=== PATIENT | female | born 1935 | race Two or more races ===

== ENCOUNTER 2025-07-29 12:38 | Inpatient (IN) | payer OTHER ==
[~2025-07-29] VITALS: Ht 160 cm; Wt 52.5 kg
--- NOTE | 2025-07-29 13:03 | ECG ---
[facility] Test Date: 2025-07-29 Test Time: 12:42:02 Pat Name: MOIZ HYMAN Department: [facility] ED Patient ID: [id number] Room: 0287T Gender: F Upholstery Cutter: alton : 1935 Requested By: ALLYN RANGEL Order Number: [id number] Reading MD: Yonny Guillaume Measurements Intervals [place] Rate: 93 P: 45 [place]: 142 QRS: -3 QRSD: 80 T: 21 QT: 375 QTc: 467 Interpretive Statements Sinus rhythm Multiple premature complexes, vent & supraven Probable left atrial enlargement Low voltage, precordial leads Borderline T abnormalities, anterior leads Electronically Signed On 07-31-2025 15:26:28 PST by Yonny Guillaume Please click the below link to view image of tracing.
--- NOTE | 2025-07-29 13:25 | ED.PDOC ---
HPI Comments This is a 89 year old female MARGOTH presenting to the ED with chief complaint of tachycardia. Patient reports that she has been experiencing episodes of tachycardia since last night, but has had multiple episodes over the past year. Patient relays that her palpitations worsened last night. Patient states that she was recently diagnosed with POTS. Patient notes associated symptoms of dizziness and SOB at this time, feeling like she is going to faint. Patient denies any chest pain, headache, N/V, abdominal pain, or syncope. Chief Complaint: High Blood Pressure Time Seen by MD: 13:11 Reviewed Notes: Nurses Notes, Refrigeration Specialist Notes, Medications, Allergies Allergies: Coded Allergies: UNOBTAINABLE (Unverified , 07/29/25) DOES NOT REMEMBER Information Source: Patient, Emergency Med Personnel Mode of Arrival: EMS Severity: Moderate Timing: Hours Duration: Since onset Prehospital treatment: None Onset: At Rest Past Medical History PAST MEDICAL HISTORY: Thyroid Past Medical History (Other): POTS Surgical History: Denies all surgeries HANDER IN History: Denies all HANDER IN Hx Family History Family History: Reviewed,noncontributory to illness Social History Smoker: Non-Smoker Alcohol: Denies ETOH Use Drugs: Denies Drug Use Lives In: Home Constitutional: denies: chills, diaphoresis, fatigue, fever, malaise, sweats, weakness, others EENTM: denies: blurred vision, double vision, ear bleeding, ear discharge, ear drainage, ear pain, ear ringing, eye pain, eye redness, hearing loss, mouth pain, mouth swelling, nasal discharge, nose bleeding, nose congestion, nose pain, photophobia, tearing, throat pain, throat swelling, voice changes, others Respiratory: reports: shortness of breath; denies: cough, hemoptysis, orthopnea, SOB at rest, SOB with excertion, stridor, wheezing, others Cardiovascular: reports: palpitations; denies: chest pain, dizzy spells, diaphoresis, Dyspnea on exertion, edema, irregular heart beat, left arm pain, lightheadedness, PND, syncope, others Gastrointestinal: denies: abdomen distended, abdominal pain, blood streaked bowels, constipated, diarrhea, dysphagia, difficulty swallowing, hematemesis, melena, nausea, poor appetite, poor fluid intake, rectal bleeding, rectal pain, vomiting, others Genitourinary: denies: abnormal vagina bleeding, burning, dyspareunia, dysuria, flank pain, frequency, hematuria, incontinence, pain, , vagina dischar ge, urgency, others Neurological: reports: dizziness; denies: fainting, headache, left sided numbness, left sided weakness, numbness, paresthesia, pre-existing deficit, right sided numbness, right sided weakness, seizure, speech problems, tingling, tremors, weakness, others Musculoskeletal: denies: back pain, gout, joint pain, joint swelling, muscle pain, muscle stiffness, neck pain, others Integumetry: denies: bruises, change in color, change in hair/nails, dryness, laceration, lesions, lumps, rash, wounds, others Allergic/Immunocompromised: denies: Difficulty Healing, Frequent Infections, Hives, Itching, others Hematologic/Lymphatic: denies: anemia, blood clots, easy bleeding, easy bruising, swollen glands, others Endocrine: denies: excessive hunger, excessive sweating, excessive thirst, excessive urination, flushing, intolerance to cold, intolerance to heat, unexplained weight gain, unexplained weight loss, others Psychiatric: denies: anxiety, bipolar disorder, depression, hopeless, panic disorder, schizophrenia, sleepless, suicidal, others All Other Systems: Reviewed and Negative Physical Exam General Appearance: No Apparent Distress, Normal HEENT: Normal ENT Inspection, Pharynx Normal, TMs Normal Neck: Full Range of Motion, Non-Tender, Normal, Normal Inspection Respiratory: Chest Non-Tender, Lungs Clear, No Accessory Muscle Use, No Respiratory Distress, Normal Breath Sounds Cardiovascular: No Edema, No JVD, No Murmur, No Gallop, Normal Peripheral Pulses, Tachycardia Breast Exam: Deferred Gastrointestinal: No Organomegaly, Non Tender, No Pulsatile Mass, Normal Bowel Sounds, Soft Genitalia: Deferred Pelvic: Deferred Rectal: Deferred Extremities: No calf tenderness, Normal capillary refill, Normal inspection, Normal range of motion, Non-tender, No pedal edema Musculoskeletal : Apperance: Normal Neurologic: Alert, peanut shaker II-XII nml as Tested, No Motor Deficits, Normal Affect, Normal Mood, No Sensory Deficits Cerebellar Function: Normal Reflexes: Normal Skin: Dry, Normal Color, Warm Lymphatic: No Adenopathy Was a procedure done? Was a procedure done?: No X-Ray, Labs, Meds, VS Vital Signs Date Time Temp Pulse Resp B/P (MAP) Pulse Ox O2 Delivery O2 Flow Rate FiO2 07/29/25 13:50 98.4 92 18 167/98 (121) 97 98.4 07/29/25 12:44 98.1 71 18 190/120 98 98.1 07/29/25 12:42 93 Lab Test 07/29/25 13:44 07/29/25 13:10 Range/Units POC Glucose 81 70-106 mg/dl White Blood Count 6.0 4.4-10.8 10^3/uL Red Blood Count 4.38 4.0-5.20 10^6/uL Hemoglobin 13.0 12.2-16.2 g/dL Hematocrit 38.2 36.0-46.0 % Mean Corpuscular Volume 87.4 80.0-100.0 fL Mean Corpuscular Hemoglobin 29.7 28.0-32.0 pg Mean Corpuscular Hemoglobin Concent 34.0 32.0-36.0 g/dL Red Cell Distribution Width 15.3 H 11.8-14.3 % Platelet Count 209 140-450 10^3/uL Mean Platelet Volume 7.2 6.9-10.8 fL Neutrophils (%) (Auto) 73.8 37.0-80.0 % Lymphocytes (%) (Auto) 16.0 10.0-50.0 % Monocytes (%) (Auto) 5.5 0.0-12.0 % Eosinophils (%) (Auto) 4.2 0.0-7.0 % Basophils (%) (Auto) 0.5 0.0-2.0 % Neutrophils # (Auto) 4.5 1.6-8.6 10 ^3/uL Lymphocytes # (Auto) 1.0 0.4-5.4 10 ^3/uL Monocytes # (Auto) 0.3 0-1.3 10 ^3/uL Eosinophils # (Auto) 0.3 0-0.8 10 ^3/uL Basophils # (Auto) 0 0-0.2 10 ^3/uL Nucleated Red Blood Cells 0.0 % Lactic Acid Level 1.1 0.4-2.0 mmol/L Troponin I High Sensitivity 27 </=34 ng/L Lipase 28 12-53 U/L Beta HCG, Quantitative 13.3 H 1.5-4.2 mIU/mL X-Ray, Labs, Meds, VS Comment [facility] [id number] [place] [id number] Ph: [phone] DIAGNOSTIC IMAGING Diagnostic Imaging Report : [id number] Signed PATIENT: CLARA HYMANT: [id number] UNIT: [id number] : 1935 LOC: ER ROOM / BED: / AGE / SEX: 89 / F ADM STATUS: REG ER SERVICE 1251 ORDERING PHYSICIAN: ALLYN RANGEL MD PROCEDURE(s): CXRP - CHEST PORTABLE REASON: palpitations ORDER NUMBER(s): [id number], ACCESSION NUMBER(s): [id number] EXAM: XY CHEST PORTABLE CLINICAL HISTORY: palpitations TECHNIQUE: Single AP view of the chest WID: COMPARISON: None FINDINGS: Lines and tubes: None Chest: The heart size and pulmonary vasculature is within normal limits. Calcified plaque projects over the aortic arch. No pleural effusion, pneumothorax, or consolidation. Mild right hilar prominence. Linear scarring or atelectasis in the bilateral lungs. The osseous structures are grossly intact. IMPRESSION: 1. Mild right hilar prominence. DDX includes vascular tortuosity, lymphadenopathy, or opacity. Recommend obtaining CT chest for further evaluation. ATED BY: MAGALI MOREAU MD DICTATED DATE/TIME: 07/29/25 1341 SIGNED BY: MAGALI MOREAU MD SIGNED DATE/TIME: 07/29/25 1341 CC: Time of 1ST Reevaluation: 14:10 Reevaluation 1ST: Unchanged Patient Education/Counseling: Diagnosis, Treatment Family Education/Counseling: No Family Present SEPSIS Sepsis Screen Date sepsis recognized/suspect: Jul 29, 2025 Time Sepsis recognized/suspect: 1248 Recent Procedure: No On Antibiotic Therapy: No Respiratory Rate >20: No Heart Rate >90: No Temp<36 C (96.8 F) or >38.3 C: No SBP <90 or MAP <65 mmHG: No New Acute Mental Status Change: No Is the patient on CPAP, BIPAP,: No Physician Orders Urinalysis (07/29/25 12:51) Blood Culture (07/29/25 12:51) Chest Portable (07/29/25 12:51) Troponin-I Hs (07/29/25 13:51) Troponin-I Hs (07/29/25 15:51) Electrocardigram (07/29/25 13:51) Electrocardigram (07/29/25 15:51) Vital Signs Date Time Temp Pulse Resp B/P (MAP) Pulse Ox O2 Delivery O2 Flow Rate FiO2 07/29/25 13:50 98.4 92 18 167/98 (121) 97 98.4 07/29/25 12:44 98.1 71 18 190/120 98 98.1 07/29/25 12:42 93 Laboratory Tests Test 07/29/25 13:10 Lactic Acid Level 1.1 mmol/L (0.4-2.0) White Blood Count 6.0 10^3/uL (4.4-10.8) Critical Care Note Critical Care Time?: No Stability Stability form required: No Heart Score Heart Score: Heart Score Response (Comments) Value History Highly Suspicious 2 EKG Normal 0 Age >65 2 Risk Factors >3 or Hx ASHD 2 Total 6 I personally scribed for ALLYN RANGEL MD ([email or web address]) on 07/29/25 at 13:25. Electronically submitted by Theo Ahumada ([email or web address]). I personally scribed for ALLYN RANGEL MD ([email or web address]) on 07/29/25 at 14:03. Electronically submitted by Theo Ahumada ([email or web address]). ALLYN RANGEL MD Jul 29, 2025 13:25
[2025-07-29 13:26] LABS: Hematocrit 38.2 % (36.0-46.0); Hemoglobin 13.0 g/dL (12.2-16.2); Mean Corpuscular Hemoglobin 29.7 pg (28.0-32.0); Mean Corpuscular Volume 87.4 fL (80.0-100.0); Nucleated Red Blood Cells % 0.0 %
--- NOTE | 2025-07-29 13:44 | DVH ---
EXAM: XY CHEST PORTABLE CLINICAL HISTORY: palpitations TECHNIQUE: Single AP view of the chest WID: COMPARISON: None FINDINGS: Lines and tubes: None Chest: The heart size and pulmonary vasculature is within normal limits. Calcified plaque projects over the aortic arch. No pleural effusion, pneumothorax, or consolidation. Mild right hilar prominence. Linear scarring or atelectasis in the bilateral lungs. The osseous structures are grossly intact. IMPRESSION: 1. Mild right hilar prominence. DDX includes vascular tortuosity, lymphadenopathy, or opacity. Recommend obtaining CT chest for further evaluation.
[2025-07-29 14:47] LABS: Urine Protein, UAD TRACE (Negative)
[2025-07-29] MEDS ORDERED: CEFEPIME 2GM/50ML NS 50 ML IV ONE (16:30)
[2025-07-29 16:36] LABS: Chloride 106 mmol/L (98-107); Sodium 143 mmol/L (136-145)
[2025-07-29 16:37] LABS: Anion Gap 12 (5-15); Calcium 9.2 mg/dL (8.7-10.4); Carbon Dioxide 25 mmol/L (20-31)
[2025-07-29 16:42] LABS: BUN/Creatinine Ratio 10.7 (10.0-20.0); Blood Urea Nitrogen 9 mg/dL (9-23); Glucose 77 mg/dL (74-106)
[2025-07-29 16:44] LABS: Potassium 3.5 mmol/L (3.5-5.1)
[2025-07-29] MEDS: SODIUM CHLORIDE 0.9% 2,000 ML IV ONE (16:45)
[2025-07-29] MEDS: CEFEPIME 1GM/50ML 50 ML IV ONE (17:08)
[2025-07-29 19:57] VITALS: PULSE 88; RESP 18; O2SAT 96
[2025-07-29] MEDS: CARVEDILOL 12.5 MG TAB PO ONE (21:09)
[2025-07-29] MEDS: METOPROLOL SUCCINATE XL 50 MG TAB PO ONE (22:30)
[2025-07-29] MEDS: SODIUM CHLORIDE 0.9% 250 ML IV ONE (22:30)
[2025-07-29] MEDS ORDERED: POTASSIUM CHL 20MEQ/100ML 100 ML IV SCH (22:30)
[2025-07-29] MEDS ORDERED: ONDANSETRON HCL 4 MG/2 ML VIAL IV PRN (22:30)
[2025-07-29] MEDS ORDERED: POLYETHYLENE GLYCOL 17 GM PWDR PO PRN (22:30)
[2025-07-29] MEDS: MAGNESIUM SULFATE 1GM/100ML 100 ML IV ONE (22:30)
[2025-07-30] VITALS (10 sets, daily range): BP systolic 113–179; BP diastolic 76–98; PULSE 63–83; RESP 16–20; TEMP 96.9–98; O2SAT 95–98
[2025-07-30] MEDS: MAGNESIUM SULFATE 1GM/100ML 100 ML IV ONE (01:10)
[2025-07-30] MEDS: POTASSIUM CHL 20MEQ/100ML 100 ML IV SCH (01:10)
[2025-07-30] MEDS ORDERED: ASPI1TAB20 PO (02:45)
[2025-07-30] MEDS ORDERED: LEVO88TA4 PO (02:47)
[2025-07-30] MEDS ORDERED: LEVOTHYROXINE SODIUM 88 MCG TAB PO SCH (06:00)
--- NOTE | 2025-07-30 06:11 | DVHHPRES ---
History of Present Illness Resident Creating Document: JHKRISTENZaneNATALEEKYLEIGH RESIDENT History of Present Illness Patient is a 89-year-old female presented to the hospital with a chief complaint of palpitations for the last 1 day. Patient reports since the last 1 year she has been having on and off palpitations, her primary cna hospice is Dr. Holden and she has had workup but does not really know her diagnosis. Patient denied any history of NC, coronary artery disease, no history of hypertension or diabetes. Since the night prior to admission patient has been having palpitations more often and she was not able to sleep, had episodes of dizziness and shortness of breath coinciding with the palpitations. She she denied any chest pain. On arrival to the ER patient was seen to have elevated blood pressure with a SBP in 190 and had intermittent episodes of tachycardia which on tele monitor rhythm strips was seen to be SVT. Twelve lead ECG showed sinus rhythm with PACs and PVCs. Past medical history: Hypothyroidism Past surgical history: Hysterectomy Social history: Patient lives with her daughter and denies smoking, alcohol, drug use Home medications: levothyroxine 88 mcg Review of Systems Review of Systems Patient seen and examined with the bedside No acute distress No chest pain, shortness of breath When the patient has episodes of tachycardia she feels dizzy, no other acute complaints Allergies: Coded Allergies: Sulfamethoxazole w/Trimethoprim (Verified Allergy, Unknown, 07/29/25) Medications Current Medications Medications Dose Ordered Sig/Valeria Route Start Time Stop Time Status Last Admin Dose Admin Losartan Potassium 50 mg DAILY PO 07/30/25 10:00 Ceftriaxone Sodium 50 ml @ 100 mls/hr DAILY@09 IV 07/30/25 09:00 Polyethylene Glycol 17 gm DAILYPRN PRN PO 07/29/25 22:30 Ondansetron HCl 4 mg Q6HPRN PRN IV 07/29/25 22:30 Levothyroxine Sodium 88 mcg QAM@0600 PO 07/30/25 06:00 Future Hold Metoprolol Succinate 50 mg DAILY PO 07/30/25 10:00 Exam Vital Signs Vital Signs Date Time Temp Pulse Resp B/P (MAP) Pulse Ox O2 Delivery O2 Flow Rate FiO2 07/30/25 05:00 64 16 160/91 (114) 96 07/30/25 01:58 97.6 97.6 07/30/25 01:58 Room Air* 0 21 Exam Skin - Patients skin is warm and dry. HEENT - normocephalic, atraumatic, moist mucous membranes, no scleral icterus, no conjunctival pallor. Neck - full ROM, no LAD, no JVD Pulmonary - B/L clear breath sounds with minimal basilar crackles likely atelectasis cardiovascular - irregularly irregular regular S1,S2 heard, holosystolic murmur in the RUSB, LLSB. peripheral pulses normal radial 2+, pedal 2+. No edema in the lower extremities GI - soft, nontender abdomen. no hepatospleenomegaly. Bowel sounds normoactive Neurological - Patient is A/O X 4 . Bilateral upper extremity strength 5/5, bilateral lower extremity strength 5/5, no facial droop, normal speech, no tremor, no sensory deficiets. Labs/Xrays Labs Test 07/29/25 16:11 07/29/25 14:23 07/29/25 13:44 07/29/25 13:10 Range/Units Sodium Level 143 136-145 mmol/L Potassium Level 3.5 3.5-5.1 mmol/L Chloride Level 106 98-107 mmol/L Carbon Dioxide Level 25 20-31 mmol/L Anion Gap 12 5-15 Blood Urea Nitrogen 9 9-23 mg/dL Creatinine 0.84 0.550-1.02 mg/dL Glomerular Filtration Rate Calc 67 >90 mL/min BUN/Creatinine Ratio 10.7 10.0-20.0 Serum Glucose 77 74-106 mg/dL Calcium Level 9.2 8.7-10.4 mg/dL Troponin I High Sensitivity 27 </=34 ng/L Urine Color Yellow Yellow Urine Clarity Turbid H Clear Urine pH 5.5 5.0-9.0 Urine Specific [place] 1.028 1.001-1.035 Urine Protein Trace H Negative Urine Ketones 2+ H Negative Urine Blood Negative Negative /uL Urine Nitrite 2+ H Negative Urine Bilirubin Negative Negative Urine Urobilinogen 2 H Negative mg/dL Urine Leukocyte Esterase 2+ Negative /uL Urine RBC 2 0 - 4 /hpf Urine Microscopic WBC 12 H 0-5 /HPF Urine Squamous Epithelial Cells Few <5 /hpf Urine Bacteria Few H None Seen /hpf Urine Mucus Few None Seen Urine Glucose Normal Normal mg/dL POC Glucose 81 70-106 mg/dl White Blood Count 6.0 4.4-10.8 10^3/uL Red Blood Count 4.38 4.0-5.20 10^6/uL Hemoglobin 13.0 12.2-16.2 g/dL Hematocrit 38.2 36.0-46.0 % Mean Corpuscular Volume 87.4 80.0-100.0 fL Mean Corpuscular Hemoglobin 29.7 28.0-32.0 pg Mean Corpuscular Hemoglobin Concent 34.0 32.0-36.0 g/dL Red Cell Distribution Width 15.3 H 11.8-14.3 % Platelet Count 209 140-450 10^3/uL Mean Platelet Volume 7.2 6.9-10.8 fL Neutrophils (%) (Auto) 73.8 37.0-80.0 % Lymphocytes (%) (Auto) 16.0 10.0-50.0 % Monocytes (%) (Auto) 5.5 0.0-12.0 % Eosinophils (%) (Auto) 4.2 0.0-7.0 % Basophils (%) (Auto) 0.5 0.0-2.0 % Neutrophils # (Auto) 4.5 1.6-8.6 10 ^3/uL Lymphocytes # (Auto) 1.0 0.4-5.4 10 ^3/uL Monocytes # (Auto) 0.3 0-1.3 10 ^3/uL Eosinophils # (Auto) 0.3 0-0.8 10 ^3/uL Basophils # (Auto) 0 0-0.2 10 ^3/uL Nucleated Red Blood Cells 0.0 % Lactic Acid Level 1.1 0.4-2.0 mmol/L Magnesium Level 2.0 1.6-2.6 mg/dL Lipase 28 12-53 U/L Thyroid Stimulating Hormone (TSH) 0.02 L 0.55-4.78 uIU/mL Beta HCG, Quantitative 13.3 H 1.5-4.2 mIU/mL SEPSIS Sepsis Screen Date sepsis recognized/suspect: Jul 29, 2025 Time Sepsis recognized/suspect: 2003 Recent Procedure: No On Antibiotic Therapy: No Respiratory Rate >20: No Heart Rate >90: No Temp<36 C (96.8 F) or >38.3 C: No SBP <90 or MAP <65 mmHG: No New Acute Mental Status Change: No Is the patient on CPAP, BIPAP,: No Physician Orders Admit (07/29/25:) Oxygen By Nasal Cannula (07/29/25:25) Stat Ekg For Chest Pain (07/29/25:) Notify Md Of Changes From Base (07/29/25:25) Business Law Teacher For 24 Hours (07/29/25 22:25) Emergency Dysrhythmia Protocol (07/29/25:) Rhythm Strips Once Every Shift (07/29/25:25) Echo 2d Mode Cardiac Dop (07/29/25 22:25) Losartan Tablet (Cozaar Tablet) (07/30/25 10:00) Ceftriaxone 1gm/50ml (Rocephin) (07/30/25 09:00) Cardiac Diet-2gna,Lofat,Lochol (07/30/25 Breakfast) Polyethylene Glycol 17g Powder (Miralax (07/29/25 22:30) Ondansetron Hcl (Zofran) (07/29/25 22:30) Levothyroxine Tablet (Synthroid Tablet) (07/30/25 06:00) Metoprolol Xl Succinate (Toprol Xl) (07/30/25 10:00) Free T4 (Free Thyroxine) (07/30/25 04:00) T3 Total (07/30/25 04:00) Basic Metabolic Panel (07/30/25 04:00) Magnesium (07/30/25 04:00) Vital Signs Date Time Temp Pulse Resp B/P (MAP) Pulse Ox O2 Delivery O2 Flow Rate FiO2 07/30/25 05:00 64 16 160/91 (114) 96 07/30/25 01:58 97.6 72 18 113/83 (93) 97 97.6 07/30/25 01:58 72 18 97 Room Air* 0 21 07/30/25 01:34 97.6 72 16 113/83 (93) 97 97.6 07/30/25 00:14 98.1 72 18 140/58 (85) 97 98.1 07/29/25 22:30 74 147/87 07/29/25 22:09 88 148/87 Medications Medications Dose Ordered Sig/Valeria Route Start Time Stop Time Status Last Admin Dose Admin Carvedilol 12.5 mg ONCE ONCE PO 07/29/25 21:00 07/29/25 21:01 DC 07/29/25 21:09 12.5 MG Magnesium Sulfate/ Dextrose 100 ml @ 100 mls/hr ONCE ONCE IV 07/30/25 01:00 07/30/25 01:59 DC 07/30/25 01:10 100 MLS/HR Metoprolol Succinate 50 mg ONCE ONCE PO 07/29/25 22:30 07/29/25 22:40 DC 07/29/25 22:30 50 MG Potassium Chloride 100 ml @ 50 mls/hr Q2H IV 07/30/25 01:00 07/30/25 04:59 DC 07/30/25 03:11 50 MLS/HR Sodium Chloride 250 ml @ 1,000 mls/hr Q15M ONCE IV 07/29/25 22:30 07/29/25 22:44 DC 07/29/25 22:30 1,000 MLS/HR Assessment/Plan Assessment/Plan Dizziness Palpitations with intermittent SVTs Hypertensive urgency h/o hypothyroidism UTI likely acute cystitis Right hilar prominence ?Lymphadenopathy Constipation Plan - tele monitor, monitor electrolytes keep potassium above 4 and Mag above 2 - started on losartan 50 mg daily - metoprolol succinate 50 daily - echocardiogram pending - patient may benefit from Cardiology consultation - TSH level low, pending free T4 and total T3, held levothyroxine - MiraLax p.r.n. - -IV ceftriaxone for UTI PUD prophylaxis: Famotidine DVT prophylaxis: Enoxaparin Goals of care discussed with the patient for over 19 minutes. Full code Time spent: 36 mins Plan discussed with Dr. Porter Plan discussed with: Patient, Other (RN) My Orders Orders - ROSIE POST RESIDENT Procedure Category Date Status Time Admit ADMIT 07/29/25 Transmitted 22:25 Oxygen By Nasal RT 07/29/25 Transmitted Cannula 22:25 Stat Ekg For Chest ALFREDA 07/29/25 In Process Pain 22:25 Notify Of Changes ALFREDA 07/29/25 In Process From Base 22:25 Business Law Teacher For ALFREDA 07/29/25 In Process 24 Hours 22:25 Emergency Dysrhythmia ALFREDA 07/29/25 In Process Protocol 22:25 Rhythm Strips Once ALFREDA 07/29/25 In Process Every Shift 22:25 Echo 2d Mode Cardiac US 07/29/25 Logged DOP 22:25 Losartan Tablet PHA 07/30/25 In Process (Cozaar Tablet) 10:00 Ceftriaxone 1gm/50ml PHA 07/30/25 In Process (Rocephin) 09:00 Cardiac DIET 07/30/25 Transmitted Diet-2gna,Lofat,Lochol Breakfast Polyethylene Glycol PHA 07/29/25 In Process 17g Powder (Miralax 22:30 Ondansetron Hcl PHA 07/29/25 In Process (Zofran) 22:30 Levothyroxine Tablet PHA 07/30/25 In Process (Synthroid Tablet) 06:00 Metoprolol Xl PHA 07/30/25 In Process Succinate (Toprol Xl) 10:00 Free T4 (Free LAB 07/30/25 Logged Thyroxine) 04:00 T3 Total LAB 07/30/25 Logged 04:00 Basic Metabolic Panel LAB 07/30/25 Logged 04:00 Magnesium LAB 07/30/25 Logged 04:00 Visit Coding STANDARD RES Billing Provider: LISA PORTER MD Date of Service if different f: Jul 29, 2025 Common Visit Codes: 32448-[id number] INP/OBS CARE (HIGH) Secondary Visit Codes: 66171-HNOEOWLE CARE PLAN 30 MINUTES ROSIE POST RESIDENT Jul 30, 2025 06:11
[2025-07-30 07:00] LABS: Anion Gap 9 (5-15); Carbon Dioxide 24 mmol/L (20-31); Potassium 4.3 mmol/L (3.5-5.1); Sodium 143 mmol/L (136-145)
[2025-07-30 07:04] LABS: Calcium 8.7 mg/dL (8.7-10.4); Chloride 110 mmol/L (98-107)
[2025-07-30 07:06] LABS: Glucose 75 mg/dL (74-106)
[2025-07-30 07:07] LABS: BUN/Creatinine Ratio 8.1 (10.0-20.0); Magnesium 2.2 mg/dL (1.6-2.6)
[2025-07-30 07:08] LABS: Blood Urea Nitrogen 6 mg/dL (9-23)
[2025-07-30] MEDS: ENOXAPARIN SOD 40 MG/0.4 ML SYRINGE SC SCH (09:12)
[2025-07-30] MEDS: LOSARTAN POTASSIUM 50 MG TAB PO SCH (09:14)
[2025-07-30] MEDS: FAMOTIDINE 20 MG TAB PO SCH (09:14)
[2025-07-30] MEDS: METOPROLOL SUCCINATE XL 50 MG TAB PO SCH (09:15)
[2025-07-30] MEDS ORDERED: METOPROLOL SUCCINATE XL 50 MG TAB PO SCH (10:00)
[2025-07-30 10:45] LABS: Free T4 (Free Thyroxine) 1.66 ng/dL (0.89-1.76)
[2025-07-30] MEDS: hydrALAZINE HCL 20 MG/ML VL IV PRN (13:41)
--- NOTE | 2025-07-30 14:32 | DVHSR ---
APPROVED REPORT EXAM: Two-dimensional and M-mode echocardiogram with Doppler and color Doppler. Blood Pressure: 160/91 mmHg INDICATION Dizziness and Vertigo Recurrent tachyarrhythmia, RUSB systolic murmur RISK FACTORS Height: 63, Weight: 115 DIMENSIONS LVDd 3.8 (3.8-5.7cm) LA (2D) 3.7 (1.9-4.0cm) Aortic Root (2.0-3.7cm) LVDs 2.6 (2.5-4.0cm) LA (MM) (1.9-4.0cm) Aortic Cusp Exc (1.5-2.0cm) EF (%) 59.0 (55-70%) Rt. Atrium 3.3 (1.9-4.0cm) Asc. Aorta cm Mitral Valve Mitral Mitral Stenosis E wave 1.27m/s MV Mean GR. mmHg A wave 1.59m/s MV Peak GR. 151mmHg E/A ratio 0.8 2D MVA cm2 DECEL Time 235ms PRESS 1/2 Time 63ms IVRT ms Dop MVA 3.51cm2 Aortic Valve Aortic Valve Aortic Stenosis V1 0.76m/s AO Mean GR. 21mmHg V2 2.94m/s AO Peak GR. 35mmHg Tricuspid Valve TR Velocity 2.26m/s RVSP 24mmHg Other Information Technically limited study due to body habitus. Conclusion Left ventricle: The cavity size is normal. Wall thickness is normal. Systolic function is normal. The estimated ejection fraction is 55-60%. Grade 1 diastolic dysfunction. Right ventricle: systolic function is normal. Estimated RVSP 24 mm Hg. Mitral valve: There is posterior mitral leaflet calcification. There is moderate mitral regurgitation. There is no mitral stenosis. Aortic valve: There is calcific tricuspid aortic valve. There is no regurgitation. There is moderate aortic stenosis. AV mean PG (22 mm Hg). Tricuspid valve: There is mild tricuspid regurgitation. Pulmonic valve: There is no regurgitation. Pericardium: There is no pericardial effusion. Inferior vena cava: the vessel is normal in size. There is normal respiratory phasic variation.
[2025-07-30] MEDS: LEVOTHYROXINE SODIUM 88 MCG TAB PO SCH (14:45)
--- NOTE | 2025-07-30 17:20 | DVHPN2 ---
Subjective Patient is here for palpitation patient is currently denies any chest pain palpitation. Changes from previous H/P or p: No Changes Objective Vitals Vital Signs Date Time Temp Pulse Resp B/P (MAP) Pulse Ox O2 Delivery O2 Flow Rate FiO2 07/30/25 15:00 68 144/76 (98) 96 07/30/25 12:53 98.0 20 98.0 07/30/25 08:00 Room Air* 0 21 Intake/Output Intake and Output 07/30/25 07:00 Intake Total 2050 ml Balance 2050 ml Intake Oral 0 ml IV Total 2050 ml # Voids 2 Exam HEENT pupils are reactive Neck is supple CV is S1-S2 regular rate and rhythm Diminished breath sounds bilateral lung bases GI positive bowel sound Extremity no edema [employer] no motor deficit Medications Current Medications Medications Dose Ordered Sig/Valeria Route Start Time Stop Time Status Last Admin Dose Admin Losartan Potassium 50 mg DAILY PO 07/30/25 10:00 07/30/25 09:14 50 MG Ceftriaxone Sodium 50 ml @ 100 mls/hr DAILY@09 IV 07/30/25 09:00 07/30/25 09:12 100 MLS/HR Polyethylene Glycol 17 gm DAILYPRN PRN PO 07/29/25 22:30 Ondansetron HCl 4 mg Q6HPRN PRN IV 07/29/25 22:30 Metoprolol Succinate 50 mg DAILY PO 07/30/25 10:00 07/30/25 09:15 50 MG Famotidine 20 mg DAILY PO 07/30/25 10:00 07/30/25 09:14 20 MG Enoxaparin Sodium 40 mg DAILY SC 07/30/25 10:00 07/30/25 09:12 40 MG Levothyroxine Sodium 88 mcg QAM@0600 PO 07/30/25 14:45 Diphenhydramine HCl 25 mg Q4HP PRN PO 07/30/25 14:45 07/30/25 15:11 25 MG Laboratory Results Laboratory Tests 07/29/25 13:10 07/30/25 06:19 Chemistry Test 07/30/25 06:19 Calcium Level 8.7 mg/dL (8.7-10.4) Magnesium Level 2.2 mg/dL (1.6-2.6) Urinalysis Test 07/29/25 14:23 Urine Color Yellow (Yellow) Urine Clarity Turbid (Clear) H Urine pH 5.5 (5.0-9.0) Urine Specific [place] 1.028 (1.001-1.035) Urine Protein Trace (Negative) H Urine Ketones 2+ (Negative) H Urine Blood Negative /uL (Negative) Urine Nitrite 2+ (Negative) H Urine Bilirubin Negative (Negative) Urine Urobilinogen 2 mg/dL (Negative) H Urine Leukocyte Esterase 2+ /uL (Negative) Urine RBC 2 /hpf (0 - 4) Urine Microscopic WBC 12 /HPF (0-5) H Urine Squamous Epithelial Cells Few /hpf (<5) Urine Bacteria Few /hpf (None Seen) H Urine Mucus Few (None Seen) Urine Glucose Normal mg/dL (Normal) Microbiology Microbiology Date/Time Source Procedure Growth Status 07/29/25 13:10 Blood Blood Culture - Preliminary NO GROWTH AFTER 24 HOURS OF INCUBATION. Resulted Assessment/Plan Assessment/Plan 1.palpitation with a intermittent SVT 2. 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 UTI -hold levothyroxine, repeat TSH free T4 free T3, cardiology consultation. Continue IV antibiotics for UTI. Plan discussed with: Patient, Daughter My Orders Orders - TERRIE SMART MD Procedure Category Date Status Time * Cardiology Consult CONS 07/30/25 Transmitted 12:57 Diphenhydramine PHA 07/30/25 In Process Capsule (Benadryl 14:45 Thyroid Stimulating LAB 07/31/25 Verified Hormone 04:00 Free T4 (Free LAB 07/31/25 Verified Thyroxine) 04:00 Free T3 LAB 07/30/25 Transmitted 17:15 Date of Service: Jul 30, 2025 Billing Provider: TERRIE SMART MD Common Visit Codes: [id number] INP/OBS CARE(HIGH) TERRIE SMART MD Jul 30, 2025 17:20
[2025-07-31] VITALS (8 sets, daily range): BP systolic 144–156; BP diastolic 72–87; PULSE 60–79; RESP 16–18; TEMP 36.6; O2SAT 94–97
[2025-07-31] MEDS ORDERED: METO-6 PO (16:34)
[2025-07-31] MEDS ORDERED: LOSA-534 PO (16:34)
[2025-07-31] MEDS ORDERED: CEFD300C2 PO (16:34)
--- NOTE | 2025-07-31 16:39 | DVHINCON2 ---
Date Seen: Jul 31, [address] Maravilla Reason for Consultation tachyarrhythmias History of Present Illness Patient is a 89-year-old female presented to the hospital with a chief complaint of palpitations for the last 1 day. Patient reports since the last 1 year she has been having on and off palpitations, her primary children's program coordinator is Dr. Holden and she has had workup but does not really know her diagnosis. Patient denied any history of LA, coronary artery disease, no history of hypertension or diabetes. Since the night prior to admission patient has been having palpitations more often and she was not able to sleep, had episodes of dizziness and shortness of breath coinciding with the palpitations. She she denied any chest pain. On arrival to the ER patient was seen to have elevated blood pressure with a SBP in 190 and had intermittent episodes of tachycardia which on tele monitor rhythm strips was seen to be SVT. Twelve lead ECG showed sinus rhythm with PACs and PVCs. Past medical history: Hypothyroidism Past surgical history: Hysterectomy Social history: Patient lives with her daughter and denies smoking, alcohol, drug use Home medications: levothyroxine 88 mcg Family History: Patient reports no known family medical history. Allergies: Coded Allergies: Sulfamethoxazole w/Trimethoprim (Verified Allergy, Unknown, 07/29/25) Home Meds Reported Medications Levothyroxine Sodium (Levothyroxine Sodium) 88 Mcg Tab, 1 TAB PO DAILY, #90 TAB 1 Refill 07/30/25 Aspirin (Aspir-81) 81 Mg Tab, 1 TAB PO DAILY, #30 TAB 5 Refills 07/30/25 Review of Systems Patient is feeling better since she has been in the hospital and on the beta nati Tele monitor reviewed, episodes of tachycardia lasting less than 10 seconds and has been few about 1 every 2 hours. Vital Signs Vital Signs Date Time Temp Pulse Resp B/P (MAP) Pulse Ox O2 Delivery O2 Flow Rate FiO2 07/31/25 12:33 98.0 60 17 144/72 (96) 97 98.0 07/31/25 08:05 Room Air* 0 21 Physical Exam Skin - Patients skin is warm and dry. HEENT - normocephalic, atraumatic, moist mucous membranes, no scleral icterus, no conjunctival pallor. Neck - full ROM, no LAD, no JVD Pulmonary - B/L clear breath sounds with minimal basilar crackles likely atelectasis cardiovascular - irregularly irregular regular S1,S2 heard, holosystolic murmur in the RUSB, LLSB. peripheral pulses normal radial 2+, pedal 2+. No edema in the lower extremities GI - soft, nontender abdomen. no hepatospleenomegaly. Bowel sounds normoactive Neurological - Patient is A/O X 4 . Bilateral upper extremity strength 5/5, bilateral lower extremity strength 5/5, no facial droop, normal speech, no tremor, no sensory deficiets. Labs/Diagnostic Data Labs Test 07/31/25 06:40 07/31/25 05:35 07/30/25 06:19 07/29/25 16:11 Range/Units Thyroid Stimulating Hormone (TSH) 0.04 L 0.55-4.78 uIU/mL Free Thyroxine (T4) Calculated 1.41 0.89-1.76 ng/dL POC Glucose 78 70-106 mg/dl Sodium Level 143 136-145 mmol/L Potassium Level 4.3 3.5-5.1 mmol/L Chloride Level 110 H 98-107 mmol/L Carbon Dioxide Level 24 20-31 mmol/L Anion Gap 9 5-15 Blood Urea Nitrogen 6 L 9-23 mg/dL Creatinine 0.74 0.550-1.02 mg/dL Glomerular Filtration Rate Calc 78 >90 mL/min BUN/Creatinine Ratio 8.1 L 10.0-20.0 Serum Glucose 75 74-106 mg/dL Calcium Level 8.7 8.7-10.4 mg/dL Magnesium Level 2.2 1.6-2.6 mg/dL Total Triiodothyronine (TT3) 1.05 0.60-1.81 ng/mL Troponin I High Sensitivity 27 </=34 ng/L Test 07/29/25 14:23 07/29/25 13:10 Range/Units Urine Color Yellow Yellow Urine Clarity Turbid H Clear Urine pH 5.5 5.0-9.0 Urine Specific [place] 1.028 1.001-1.035 Urine Protein Trace H Negative Urine Ketones 2+ H Negative Urine Blood Negative Negative /uL Urine Nitrite 2+ H Negative Urine Bilirubin Negative Negative Urine Urobilinogen 2 H Negative mg/dL Urine Leukocyte Esterase 2+ Negative /uL Urine RBC 2 0 - 4 /hpf Urine Microscopic WBC 12 H 0-5 /HPF Urine Squamous Epithelial Cells Few <5 /hpf Urine Bacteria Few H None Seen /hpf Urine Mucus Few None Seen Urine Glucose Normal Normal mg/dL White Blood Count 6.0 4.4-10.8 10^3/uL Red Blood Count 4.38 4.0-5.20 10^6/uL Hemoglobin 13.0 12.2-16.2 g/dL Hematocrit 38.2 36.0-46.0 % Mean Corpuscular Volume 87.4 80.0-100.0 fL Mean Corpuscular Hemoglobin 29.7 28.0-32.0 pg Mean Corpuscular Hemoglobin Concent 34.0 32.0-36.0 g/dL Red Cell Distribution Width 15.3 H 11.8-14.3 % Platelet Count 209 140-450 10^3/uL Mean Platelet Volume 7.2 6.9-10.8 fL Neutrophils (%) (Auto) 73.8 37.0-80.0 % Lymphocytes (%) (Auto) 16.0 10.0-50.0 % Monocytes (%) (Auto) 5.5 0.0-12.0 % Eosinophils (%) (Auto) 4.2 0.0-7.0 % Basophils (%) (Auto) 0.5 0.0-2.0 % Neutrophils # (Auto) 4.5 1.6-8.6 10 ^3/uL Lymphocytes # (Auto) 1.0 0.4-5.4 10 ^3/uL Monocytes # (Auto) 0.3 0-1.3 10 ^3/uL Eosinophils # (Auto) 0.3 0-0.8 10 ^3/uL Basophils # (Auto) 0 0-0.2 10 ^3/uL Nucleated Red Blood Cells 0.0 % Lactic Acid Level 1.1 0.4-2.0 mmol/L Lipase 28 12-53 U/L Beta HCG, Quantitative 13.3 H 1.5-4.2 mIU/mL Microbiology Date/Time Source Procedure Growth Status 07/30/25 11:40 Voided Urine Urine Culture - Preliminary No growth Resulted 07/29/25 13:10 Blood Blood Culture - Preliminary NO GROWTH AFTER 48 HOURS OF INCUBATION. Resulted Assessment Dizziness Palpitations with intermittent SVTs Hypertensive urgency h/o hypothyroidism Plan/Recommendation - continue on metoprolol succinate 50 daily for rate control. Outpatient follow up with the children's program coordinator and may need referral to EP if patient is symptomatic and has intractable episodes of tachycardia/palpitations - thyroid studies revealed subclinical hyperthyroidism, follow up with the PCP No further inpatient cardiology workup needed, thank you for consulting. Follow up Outpatient with the children's program coordinator Goals of care discussed with the patient and her daughter for over 19 minutes. Time spent: 31 mins Plan discussed with Dr. Neri Plan discussed with: Patient, Daughter NYHA Physical activity limitations: NA Date of Service: Jul 31, 2025 Billing Provider: SAHIL NERI MD Cardiology Common Codes: [id number] INP/OBS CARE (High) ROSIE POST RESIDENT Jul 31, 2025 16:38
--- NOTE | 2025-07-31 16:41 | DVHDS2 ---
Discharge Summary Date of Admission Jul 29, 2025 at 22:25 Date of Discharge: Jul 31, 2025 Labs/Diagnostic Data: Laboratory Results Test 07/31/25 06:40 07/31/25 05:35 07/30/25 06:19 07/29/25 16:11 Thyroid Stimulating Hormone (TSH) 0.04 uIU/mL (0.55-4.78) Free Thyroxine (T4) Calculated 1.41 ng/dL (0.89-1.76) POC Glucose 78 mg/dl (70-106) Sodium Level 143 mmol/L (136-145) Potassium Level 4.3 mmol/L (3.5-5.1) Chloride Level 110 mmol/L (98-107) Carbon Dioxide Level 24 mmol/L (20-31) Anion Gap 9 (5-15) Blood Urea Nitrogen 6 mg/dL (9-23) Creatinine 0.74 mg/dL (0.550-1.02) Glomerular Filtration Rate Calc 78 mL/min (>90) BUN/Creatinine Ratio 8.1 (10.0-20.0) Serum Glucose 75 mg/dL (74-106) Calcium Level 8.7 mg/dL (8.7-10.4) Magnesium Level 2.2 mg/dL (1.6-2.6) Total Triiodothyronine (TT3) 1.05 ng/mL (0.60-1.81) Troponin I High Sensitivity 27 ng/L (</=34) Test 07/29/25 14:23 07/29/25 13:10 Urine Color Yellow (Yellow) Urine Clarity Turbid (Clear) Urine pH 5.5 (5.0-9.0) Urine Specific [place] 1.028 (1.001-1.035) Urine Protein Trace (Negative) Urine Ketones 2+ (Negative) Urine Blood Negative /uL (Negative) Urine Nitrite 2+ (Negative) Urine Bilirubin Negative (Negative) Urine Urobilinogen 2 mg/dL (Negative) Urine Leukocyte Esterase 2+ /uL (Negative) Urine RBC 2 /hpf (0 - 4) Urine Microscopic WBC 12 /HPF (0-5) Urine Squamous Epithelial Cells Few /hpf (<5) Urine Bacteria Few /hpf (None Seen) Urine Mucus Few (None Seen) Urine Glucose Normal mg/dL (Normal) White Blood Count 6.0 10^3/uL (4.4-10.8) Red Blood Count 4.38 10^6/uL (4.0-5.20) Hemoglobin 13.0 g/dL (12.2-16.2) Hematocrit 38.2 % (36.0-46.0) Mean Corpuscular Volume 87.4 fL (80.0-100.0) Mean Corpuscular Hemoglobin 29.7 pg (28.0-32.0) Mean Corpuscular Hemoglobin Concent 34.0 g/dL (32.0-36.0) Red Cell Distribution Width 15.3 % (11.8-14.3) Platelet Count 209 10^3/uL (140-450) Mean Platelet Volume 7.2 fL (6.9-10.8) Neutrophils (%) (Auto) 73.8 % (37.0-80.0) Lymphocytes (%) (Auto) 16.0 % (10.0-50.0) Monocytes (%) (Auto) 5.5 % (0.0-12.0) Eosinophils (%) (Auto) 4.2 % (0.0-7.0) Basophils (%) (Auto) 0.5 % (0.0-2.0) Neutrophils # (Auto) 4.5 10 ^3/uL (1.6-8.6) Lymphocytes # (Auto) 1.0 10 ^3/uL (0.4-5.4) Monocytes # (Auto) 0.3 10 ^3/uL (0-1.3) Eosinophils # (Auto) 0.3 10 ^3/uL (0-0.8) Basophils # (Auto) 0 10 ^3/uL (0-0.2) Nucleated Red Blood Cells 0.0 % Lactic Acid Level 1.1 mmol/L (0.4-2.0) Lipase 28 U/L (12-53) Beta HCG, Quantitative 13.3 mIU/mL (1.5-4.2) Other Laboratory Tests 07/30/25 06:19 07/29/25 13:10 Brief Hx & Hospital Course: 89-year-old female with a known history of hypothyroidism currently on levothyroxine she used to be on 100 mcg daily recently got down to 88 mcg presented to the hospital with the chest pain palpitation and intermittent SVT as well as hypertensive urgency. Patient's levothyroxine was held as TSH is very low. So she basically has a symptomatic hyperthyroidism secondary to large dose of levothyroxine which was on hold. Patient will be discharged on p.o. metoprolol as well as losartan for hypertensive urgency. She was recommended not to take any levothyroxine until she go see her primary physician with a repeat TSH free T4 free T3. Patient's and patient's family was updated at bedside they understand and agreeable to plan. Patient's UTI was treated with the two doses of IV antibiotics we will switch to p.o. antibiotics for next three more days. Condition at Discharge: Stable Final Diagnosis/Problems List 1.palpitation with a intermittent SVT 2. 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 UTI 4. Hypertensive urgency Discharge Disposition: Home SNF Discharge Will this Physician continue t: No Discharge Instruct/Medications Diet: Cardiac 2g Na,low cholest Activity: No Restrictions, As Tolerated Follow Up/Referral: Please follow up with the PCP in one week with a repeat TSH, free T4, free T3. Follow up with the Cardiology in one week Medications: Hold levothyroxine Metoprolol succinate and losartan and cefdinir as prescribed. New Medications: Cefdinir (Cefdinir) 300 Mg Cap 1 CAP PO BID for 3 Days, #6 CAP Losartan Potassium (Losartan Potassium) 50 Mg Tab 50 MG PO DAILY, #30 TAB Metoprolol Succinate (Toprol Xl) 50 Mg Tab 50 MG PO DAILY, #30 TAB Continued Medications: Aspirin (Aspir-81) 81 Mg Tab 1 TAB PO DAILY, #30 TAB 5 Refills Discontinued Medications: Levothyroxine Sodium (Levothyroxine Sodium) 88 Mcg Tab 1 TAB PO DAILY, #90 TAB 1 Refill Scheduled Aspirin (Aspir-81), 1 TAB PO DAILY, (Reported) Cefdinir (Cefdinir), 1 CAP PO BID Levothyroxine Sodium (Levothyroxine Sodium), 1 TAB PO DAILY, (Reported) Losartan Potassium (Losartan Potassium), 50 MG PO DAILY Metoprolol Succinate (Toprol Xl), 50 MG PO DAILY Discharge Statement: "Patient was advised to return to the ER or call 911 if any headaches, dizziness, shortness of breath, chest pain, abdominal pain, bleeding, fevers, or worsening of medical condition. Patient was counseled about treatment plan, medications, possible side effects, patientverbalized understanding. All questions were answered to the best of my ability. This discharge took greater then 30 minutes in planning, reviewing documentation, counseling the patient, and discussing with other team members." ASSESSMENT ASSESSMENT Assessment 1.palpitation with a intermittent SVT 2. 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 UTI 4. Hypertensive urgency Date of Service: Jul 31, 2025 Billing Provider: TERRIE SMART MD Common Visit Codes: 96609-PTP/OBS DISCH DAY >30min TERRIE SMART MD Jul 31, 2025 16:41
== END 2025-07-31 18:25 | disposition home or self-care (01) | DRG 305 ==
LOC: ER 12:38 → EDBD 12:38 → OVERFLOW 22:25 → TELE-WESTW 23:58
PROVIDERS: ADMIT Internal Medicine; ATTEND Internal Medicine
DX: I16.0 Hypertensive urgency (principal); I47.10 Supraventricular tachycardia, unspecified; N39.0 Urinary tract infection, site not specified; E05.80 Other thyrotoxicosis without thyrotoxic crisis or storm; K59.00 Constipation, unspecified; Z90.710 Acquired absence of both cervix and uterus; Z79.899 Other long term (current) drug therapy; I49.3 Ventricular premature depolarization; T38.1X5A Adverse effect of thyroid hormones and substitutes, initial encounter; Y92.89 Other specified places as the place of occurrence of the external cause
CPT/HCPCS: 36415; 71045; 80048; 81001; 82962; 83605; 83690; 83735; 84439; 84443; 84480; 84484; 84702; 85025; 87040; 87086; 93005; 93306; 96361; 96365; G0378; J0692; J3480